=== PATIENT | male | born 1970 | race Caucasian/White ===

== ENCOUNTER 2017-03-10 12:44 | Emergency (ER) | payer OTHER ==
[~2017-03-10 12:44] MED LIST: ATORVASTATIN CA40 MG PO; CITALOPRAM20 MG PO; HCTZ 25MG25 MG PO; KETOROLAC10 MG PO; NAPROXEN500 MG PO; NORCO 325 MG-51 TA1 PO; VITAMIN D1000 IU PO
[2017-03-10] MEDS ORDERED: ULTRAM50 M1 PO (13:00)
[2017-03-10] MEDS ORDERED: BENADRYL PO (13:01)
[2017-03-10] MEDS ORDERED: CEPHALEXIN500 M1 PO (13:32)
[2017-03-10 13:47] VITALS: BP 137/87
== END 2017-03-10 13:51 | disposition home or self-care (01) ==
LOC: ED 12:44
DX: S30.860A Insect bite (nonvenomous) of lower back and pelvis, initial encounter (principal)

== ENCOUNTER → 2020-10-05 | Outpatient (CLI) | payer OTHER ==
[~2020-10-05] MED LIST changes: +BENADRYL PO; +CEPHALEXIN500 M1 PO; +ULTRAM50 M1 PO
[2020-10-05 08:50] LABS: BASO # 0.1 (0.02-0.10); EOS # 0.2 (0.04-0.40); EOS % 3.3 % (0.0-4.0); HEMATOCRIT 44.7 % (42.0-52.0); HEMOGLOBIN 14.7 g/dL (13.5-18.0); LYMPH# 2.2 (1.50-4.00); MEAN CELL VOLUME 94 fl (78-100); MEAN CORPUSCULAR HEMOGLOBIN 31 pg (27-31); MEAN CORPUSCULAR HGB CONC 33 g/dL (33-37); MEAN PLATELET VOLUME 8.3 fl (7.4-10.4); MONO # 0.7 (0.20-0.80); NEU # 3.2 (1.40-6.50); PLATELET COUNT 292 K/mm3 (130-400); RED BLOOD COUNT 4.74 M/mm3 (4.20-5.60); RED CELL DISTRIBUTION WIDTH 12.6 % (11.5-14.5); WHITE BLOOD COUNT 6.4 K/mm3 (4.8-10.8)
[2020-10-05 09:40] LABS: ALBUMIN 4.1 g/dL (3.5-5.0); POTASSIUM 4.7 mmol/L (3.5-5.1)
[2020-10-05 09:41] LABS: CALCIUM 9.1 mg/dL (8.3-10.5)
[2020-10-05 09:43] LABS: TOTAL PROTEIN 7.2 g/dL (6.4-8.3)
[2020-10-05 09:44] LABS: TOTAL BILIRUBIN 0.4 mg/dL (0.2-1.2)
== END ==
LOC: LAB 08:28
PROVIDERS: Physician Assistant
DX: E11.9 Type 2 diabetes mellitus without complications (principal); E03.9 Hypothyroidism, unspecified

== ENCOUNTER 2021-01-08 11:16 | Emergency (ER) | payer OTHER ==
[2021-01-08 12:32] LABS: BASO # 0.1 (0.02-0.10); EOS # 0.2 (0.04-0.40); EOS % 1.5 % (0.0-4.0); HEMATOCRIT 44.3 % (42.0-52.0); HEMOGLOBIN 14.8 g/dL (13.5-18.0); LYMPH# 1.9 (1.50-4.00); MEAN CELL VOLUME 93 fl (78-100); MEAN CORPUSCULAR HEMOGLOBIN 31 pg (27-31); MEAN CORPUSCULAR HGB CONC 33 g/dL (33-37); MEAN PLATELET VOLUME 8.5 fl (7.4-10.4); MONO # 1.3 (0.20-0.80); NEU # 7.8 (1.40-6.50); PLATELET COUNT 337 K/mm3 (130-400); RED BLOOD COUNT 4.76 M/mm3 (4.20-5.60); RED CELL DISTRIBUTION WIDTH 13.1 % (11.5-14.5); WHITE BLOOD COUNT 11.3 K/mm3 (4.8-10.8)
[2021-01-08] MEDS ORDERED: ALLOPURINOL300 M1 PO (13:13)
[2021-01-08] MEDS ORDERED: PREDNISONE20 M1 PO (13:13)
[2021-01-08] MEDS ORDERED: REQUIP0.25 M1 (13:29)
[2021-01-08] MEDS ORDERED: FLUOXETINE HCL20 MG PO (13:29)
[2021-01-08] MEDS ORDERED: MELOXICAM5 MG (13:30)
[2021-01-08] MEDS ORDERED: GLUCOTROL 5M5 MG/TAB (13:30)
[2021-01-08] MEDS ORDERED: CYCLOBENZ5 MG (13:30)
[2021-01-08 13:32] VITALS: BP 152/84
== END 2021-01-08 13:20 | disposition home or self-care (01) ==
LOC: ED 11:16
PROVIDERS: Family Medicine
DX: M10.9 Gout, unspecified (principal); I10 Essential (primary) hypertension; F17.210 Nicotine dependence, cigarettes, uncomplicated

== ENCOUNTER → 2021-01-26 | Outpatient (CLI) | payer OTHER ==
[2021-01-08 13:32] VITALS: BP 152/84
[~2021-01-26] MED LIST changes: +ALLOPURINOL300 M1 PO; +CYCLOBENZ5 MG; +FLUOXETINE HCL20 MG PO; +GLUCOTROL 5M5 MG/TAB; +MELOXICAM5 MG; +PREDNISONE20 M1 PO; +REQUIP0.25 M1
== END ==
LOC: LAB 14:28
DX: E03.9 Hypothyroidism, unspecified (principal); E11.9 Type 2 diabetes mellitus without complications

== ENCOUNTER → 2021-11-10 | Outpatient (CLI) | payer OTHER ==
[2021-11-10 17:07] LABS: BASO # 0.05 K/mm3 (0.02-0.10); EOS # 0.13 K/mm3 (0.04-0.40); EOS % 1.7 % (0.0-4.0); HEMATOCRIT 45.2 % (42.0-52.0); HEMOGLOBIN 15.4 g/dL (13.5-18.0); LYMPH# 2.68 K/mm3 (1.50-4.00); MEAN CELL VOLUME 93 fl (78-100); MEAN CORPUSCULAR HEMOGLOBIN 32 pg (27-31); MEAN CORPUSCULAR HGB CONC 34 g/dL (33-37); MEAN PLATELET VOLUME 8.4 fl (7.4-10.4); MONO # 0.76 K/mm3 (0.20-0.80); NEU # 4.02 K/mm3 (1.40-6.50); PLATELET COUNT 319 K/mm3 (130-400); RED BLOOD COUNT 4.88 M/mm3 (4.20-5.60); RED CELL DISTRIBUTION WIDTH 12.4 % (11.5-14.5); WHITE BLOOD COUNT 7.7 K/mm3 (4.8-10.8)
[2021-11-10 17:11] LABS: POTASSIUM 4.4 mmol/L (3.5-5.1)
[2021-11-10 17:12] LABS: ALBUMIN 4.3 g/dL (3.5-5.0)
[2021-11-10 17:13] LABS: CALCIUM 10.3 mg/dL (8.3-10.5)
[2021-11-10 17:14] LABS: TOTAL PROTEIN 7.9 g/dL (6.4-8.3)
[2021-11-10 17:16] LABS: TOTAL BILIRUBIN 0.7 mg/dL (0.2-1.2)
== END ==
LOC: LAB 16:35
PROVIDERS: Physician Assistant
DX: Z12.5 Encounter for screening for malignant neoplasm of prostate (principal); Z00.00 Encounter for general adult medical examination without abnormal findings; E78.5 Hyperlipidemia, unspecified; E03.9 Hypothyroidism, unspecified; E11.9 Type 2 diabetes mellitus without complications; K90.9 Intestinal malabsorption, unspecified

== ENCOUNTER → 2022-02-15 | Day surgery (SDC) | payer OTHER | END | disposition home or self-care (01) | LOC: MSO 08:12 | DX: Z12.11 Encounter for screening for malignant neoplasm of colon (principal); K62.1 Rectal polyp; K63.5 Polyp of colon; D12.2 Benign neoplasm of ascending colon; F17.290 Nicotine dependence, other tobacco product, uncomplicated; Z80.0 Family history of malignant neoplasm of digestive organs | CPT/HCPCS: 00811; J2704; J7120 ==

== ENCOUNTER → 2022-05-03 | Outpatient (CLI) | payer OTHER | LOC: LAB 09:12 | DX: E03.9 Hypothyroidism, unspecified (principal); I10 Essential (primary) hypertension; G25.81 Restless legs syndrome; F41.8 Other specified anxiety disorders ==

== ENCOUNTER → 2022-07-10 | Outpatient (CLI) | payer OTHER | LOC: LAB 15:34 | DX: E11.9 Type 2 diabetes mellitus without complications (principal) ==

== ENCOUNTER → 2022-12-14 | Outpatient (CLI) | payer OTHER | LOC: LAB 11:44 | DX: U07.1 COVID-19 (principal) ==

== ENCOUNTER → 2023-01-08 | Outpatient (CLI) | payer OTHER | LOC: RAD 09:26 | DX: M17.11 Unilateral primary osteoarthritis, right knee (principal); M25.559 Pain in unspecified hip ==

== ENCOUNTER → 2023-01-24 | Outpatient (CLI) | payer OTHER | LOC: RAD 18:40 | DX: Q74.1 Congenital malformation of knee (principal); M22.41 Chondromalacia patellae, right knee; M67.51 Plica syndrome, right knee; M25.361 Other instability, right knee ==